=== PATIENT | female | born 2000 | race Caucasian/White ===

== ENCOUNTER 2018-04-08 09:17 | Emergency (ER) | payer OTHER ==
[2018-04-08] MEDS ORDERED: Ondansetron INJ* 2 MG/ML VIAL IV ONE (09:48)
[2018-04-08] MEDS ORDERED: Ketorolac INJ* 30 MG/ML 1 ML VIAL IV PUSH ONE (09:48)
[2018-04-08] MEDS ORDERED: NS 0.9% 1000 ML* 1,000 ML IV ONE (09:48)
--- NOTE | 2018-04-08 09:58 | ED ---
Abdominal Pain/Female - HPI Summary HPI Summary: This patient is a 18 year old F BIBA to [facility] accompanied by friend with a chief complaint of lower abdominal pain radiating to LUQ and L shoulder that began yesterday night. The patient rates the pain 8/10 in severity. Symptoms aggravated by movement. Symptoms alleviated by nothing. Patient reports nausea. Patient denies fever, chills, vomiting, diarrhea, and difficulty urinating. Patient states she drank alcohol last night prior to the pain beginning. Patient states she has an IUD, and therefore has inconsistent menstrual periods. - History of Current Complaint Chief Complaint: EDAbdPain Stated Complaint: ABD PAIN Time Seen by Provider: 04/08/18 09:37 Hx Obtained From: Patient ?: No Onset/Duration: Sudden Onset, Lasting Hours, Still Present Timing: Constant Severity Initially: Severe Severity Currently: Severe Pain Intensity: 8 Pain Scale Used: 0-10 Numeric Location: Other - Lower abdomen Radiates: Yes Radiates to: Other - LUQ and shoulder Aggravating Factor(s): Movement Alleviating Factor(s): Nothing Associated Signs and Symptoms: Positive: Other: - Positive nausea. Negative fever, chills, vomiting, diarrhea, and difficulty urinating. Allergies/Adverse Reactions: Allergies Allergy/AdvReac Type Severity Reaction Status Date / Time No Known Allergies Allergy Verified 04/08/18 09:26 PMH/Surg Hx/FS Hx/Imm Hx Previously Healthy: Yes Opthamlomology History: Denies: Hx Legally Blind EENT History: Denies: Hx Deafness Infectious Disease History: No Infectious Disease History: Denies: Traveled Outside the [place] in Last 30 Days - Family History Known Family History: Negative: Cardiac Disease, Diabetes - Social History Occupation: Student Lives: Dormitory/Roommates Alcohol Use: Occasionally Hx Substance Use: No Substance Use Type: Reports: None Hx Tobacco Use: No Smoking Status (MU): Unknown if Ever Smoked Review of Systems Negative: Fever Positive: Abdominal Pain, Other - Negative hematemesis. Negative: Diarrhea All Other Systems Reviewed And Are Negative: Yes Physical Exam - Summary Physical Exam Summary: Appearance: Well appearing, no pain distress Skin: warm, dry, reflects adequate perfusion Head/face: normal Eyes: EOMI, ROSA ENT: mucous membranes moist Neck: supple, non-tender Respiratory: CTA, breath sounds present Cardiovascular: RRR, pulses symmetrical Abdomen: Peritoneal signs. Diffuse guarding. Tenderness with heel tap. Positive obturator sign. Positive psoas sign Bowel Sounds: present Musculoskeletal: normal, strength/ROM intact Neuro: normal, sensory motor intact, A&Ox3 Triage Information Reviewed: Yes Vital Signs On Initial Exam: Initial Vitals Temp Pulse Resp BP Pulse Ox 98.8 F 89 14 107/71 100 04/08/18 09:26 04/08/18 09:26 04/08/18 09:26 04/08/18 09:26 04/08/18 09:26 Vital Signs Reviewed: Yes Diagnostics - Vital Signs Vital Signs Temp Pulse Resp BP Pulse Ox 04/08/18 09:26 98.8 F 89 14 107/71 100 - Laboratory Result Diagrams: 04/08/18 09:56 04/08/18 09:56 Lab Statement: Any lab studies that have been ordered have been reviewed, and results considered in the medical decision making process. - CT CT Abdomen and Pelvis CT Interpretation Completed By: Radiologist Summary of CT Findings: CT abdomen and pelvis reveals, per radiologist, 1. Normal-appearing appendix and gastrointestinal tract within the limitations of a nonoral contrast CT examination. 2. Mild to moderate amount of hyperattenuating peritoneal ascites indicating the presence of hemorrhage. In the absence of trauma and in the presence of an otherwise normal-appearing gastrointestinal tract rupture of a hemorrhagic ovarian follicle is. favored in a woman of this age. If it will influence clinical management superior characterization of the uterus and ovaries can be made with transvaginal pelvic ultrasound. ED physician has reviewed this radiology report. - Additional Comments Diagnostic Additional Comments: Appendix US reveals, per radiologist, 1. Nonvisualization of the appendix. 2. Small amount of peritoneal ascites identified in the right lower quadrant. ED physician has reviewed this radiology report. Re-Evaluation - Re-Evaluation First Eval Re-Evaluation Time: 11:45 Change: Improved Comment: Patient reports that her pain is much improved Abdominal Pain Fem Course/Dx - Course Course Of Treatment: Patient presents with diffuse peritonitis that happened abruptly. There is pain in the right lower quadrant and so a CT was performed following an ultrasound of the appendix. The appendix was not visualized however there is free fluid noted on the ultrasound and the pelvis. Concern for ruptured/hemorrhagic ovarian cyst. This is confirmed on CT scan. She was treated with IV Toradol here with significant relief. She was no longer having pain with movement or peritoneal signs on examination. Her hemoglobin is 10.8 but there is no baseline. She is not feeling weak, lightheaded or dizzy. I discussed the case with [facility] who will follow her up outpatient. Strict return instructions were provided both verbally and written. - Diagnoses Differential Diagnosis: Positive: Appendicitis, Bowel Obstruction, Constipation , Ectopic , Ovarian Cyst, Pancreatitis, , Renal Colic Provider Diagnoses: Hemorrhagic ovarian cyst, Generalized abdominal pain - Provider Notifications Instructed by Provider To: Other - Consult with Dr. Jeronimo (gynecology) at 1156. He agreed to follow up with the patient. Discharge - Sign-Out/Discharge Documenting (check all that apply): Patient Departure - Discharge Plan Condition: Improved Disposition: HOME Prescriptions: Naproxen [Naproxen 500 mg tab] 500 mg PO BID PRN #12 tablet.dr PRN Reason: Pain traMADol TAB* [Ultram*] 50 mg PO Q6HR PRN #12 tab MDD 4 PRN Reason: more severe pain Patient Education Materials: Ruptured Ovarian Cyst (ED) Referrals: [facility] [Provider Group] Hansel Jeronimo MD [Medical Doctor] - Additional Instructions: Return with uncontrolled pain, vomiting, high fever, feeling weak/pale or passing out, worse or other concerns. Call first thing Tuesday to schedule follow-up with the [facility] doctor. - Billing Disposition and Condition Condition: IMPROVED Disposition: Home - Attestation Statements Document Initiated by Efrenibe: Yes Documenting Scribe: Stephani Stover Provider For Whom Scribe is Documenting (Include Credential): Dr. Reji Johnson MD Scribe Attestation: I, Stephani Stover, scribed for Dr. Reji Johnson MD on 04/08/18 at 1223. Scribe Documentation Reviewed: Yes Provider Attestation: The documentation as recorded by the Stephani hernandes accurately reflects the service I personally performed and the decisions made by me, Dr. Reji Johnson MD
[2018-04-08 10:08] LABS: ABS Basophils 0.1 10^3/ul (0-0.2); ABS Eosinophils 0.1 10^3/ul (0-0.6); ABS Lymphocytes 2.3 10^3/ul (1.0-4.8); ABS Monocytes 0.5 10^3/ul (0-0.8); ABS Nucleated RBC 0 10^3/ul; Eosinophil % 0.6 % (0-6); Hematocrit 32 % (35-47); Hemoglobin 10.8 g/dl (12.0-16.0); Lymphocyte % 20.9 % (25-47); Mean Corpuscular HGB Conc 34 g/dl (31-36); Mean Corpuscular Hemoglobin 31 pg (27-31); Mean Corpuscular Volume 90 fL (80-97); Mean Platelet Volume 7.6 fL (7.4-10.4); Nucleated Red Blood Cells % 0; Platelet Count 238 10^3/ul (150-450); Red Blood Count 3.52 10^6/ul (4.00-5.40); Red Cell Distribution Width 13 % (10.5-15); White Blood Count 10.9 10^3/ul (3.5-10.8)
[2018-04-08 10:26] LABS: EGFR Non-African American 168.9 (>60)
[2018-04-08] MEDS ORDERED: Iohexol 300* (CONTRAST) 10 ML SDV IV ONE (10:44)
[2018-04-08 10:48] LABS: Urine Appearance Cloudy; Urine Blood Negative (Negative); Urine Color Yellow; Urine Ketones Negative (Negative); Urine Protein Negative (Negative); Urine Red Blood Cell Trace(0-2/hpf) (Absent); Urine Specific Gravity 1.023 (1.010-1.030); Urine Urobilinogen Negative (Negative); Urine White Blood Cell 1+(6-10/hpf) (Absent)
--- NOTE | 2018-04-08 11:02 | RAD ---
INDICATION: Right lower quadrant pain. COMPARISON: None TECHNIQUE: Real time ultrasound images of the right lower quadrant were acquired in garcia scale and Doppler color flow. FINDINGS: The appendix is not discreetly visualized. There is a small amount of free peritoneal fluid in the right lower quadrant. IMPRESSION: 1. Nonvisualization of the appendix. 2. Small amount of peritoneal ascites identified in the right lower quadrant.
--- NOTE | 2018-04-08 11:29 | RAD ---
CLINICAL HISTORY: Abdominal pain since the previous night COMPARISON: Same day ultrasound of the right lower quadrant that demonstrates peritoneal ascites TECHNIQUE: Contrast enhanced CT examination of the abdomen and pelvis from the lung bases through the initial tuberosities. The patient received 6 mL Omnipaque 300 intravenously prior to imaging.The patient did not receive oral contrast which limits evaluation of the gastrointestinal tract. FINDINGS: VISUALIZED LUNG BASES: The visualized lung bases are grossly clear. There is no pleural effusion. ABDOMEN AND PELVIS: The liver, spleen, pancreas and adrenal glands are grossly normal in appearance. The gallbladder is normal. The kidneys are normal in appearance without focal mass, calcification or signs of hydronephrosis. Evaluation of the gastrointestinal tract is limited without oral contrast. The small and large bowel are not distended. The patient's normal appendix is identified in the right lower quadrant measuring just under 6 mm in diameter in the sagittal plane (image 54). There is no gross retroperitoneal or mesenteric lymphadenopathy. There is a mild to moderate amount of lower abdominal and pelvic peritoneal ascites with a Hounsfield unit greater than that of simple fluid. An intrauterine device appears to be appropriately positioned in the uterus. At the left adnexa there is a well-circumscribed low-attenuation structure measuring 1.6 cm in greatest dimension (axial image 66 and sagittal image 73) most consistent with an ovarian follicle in a woman of this age The abdominal aorta and iliac arteries are normal in course and diameter. There are no sinister bone lesions. IMPRESSION: 1. Normal-appearing appendix and gastrointestinal tract within the limitations of a nonoral contrast CT examination. 2. Mild to moderate amount of hyperattenuating peritoneal ascites indicating the presence of hemorrhage. In the absence of trauma and in the presence of an otherwise normal-appearing gastrointestinal tract rupture of a hemorrhagic ovarian follicle is favored in a woman of this age. If it will influence clinical management superior characterization of the uterus and ovaries can be made with transvaginal pelvic ultrasound.
[2018-04-08 12:07] VITALS: BP 129/67
== END 2018-04-08 12:06 | disposition home or self-care (01) ==
LOC: ED 09:17
DX: N83.209 Unspecified ovarian cyst, unspecified side (principal); R10.12 Left upper quadrant pain
CPT/HCPCS: 36415; 74177; 76705; 80053; 81003; 81015; 83605; 83690; 84702; 85025; 86140; 86850; 86900; 86901; 87086; 96374; 96375; 99283; J1885; J2405; Q9967